=== PATIENT | female | born 1975 | race Caucasian/White ===

== ENCOUNTER 2022-01-18 08:41 | Inpatient (IN) | payer OTHER ==
[2022-01-18] MEDS ORDERED: Adenosine 6 MG/2 ML VIAL ONE (08:59)
[2022-01-18] MEDS ORDERED: Iopamidol 370 76% 100 ML VIAL ONE (09:06)
[2022-01-18 09:16] LABS: #Monocytes 0.8 10x3/uL (0.0-1.1); #Neutrophils 8.8 10x3/uL (1.5-8.4); %Basophils 0.1 % (0.0-2.0); %Eosinophils 0.4 % (0.0-6.0); %Lymphocytes 6.7 % (18.0-47.0); %Neutrophils 84.5 % (40.0-75.0); Hemoglobin 11.8 g/dL (12.0-15.5); Mean Corpuscular HGB CONC 32.1 g/dL (32.0-36.0); Mean Corpuscular Hemoglobin 25.4 pg (27.0-33.0); Mean Corpuscular Volume 79.3 fl (81.6-98.3); Platelet Count 257 10x3/uL (150-450); RBC Distribution Width 18.6 % (11.5-14.5); Red Blood Cell (RBC) Count 4.64 10x6/uL (3.90-5.03); White Blood Cell (WBC) Count 10.4 10x3/uL (3.5-10.5)
[2022-01-18] MEDS ORDERED: Acetaminophen 500 MG TAB ONE (09:18)
[2022-01-18 09:28] LABS: ALT (SGPT) 17 U/L (8-55); AST (SGOT) 21 U/L (5-34); Albumin 3.9 g/dL (3.5-5.0); Alkaline Phosphatase 78 U/L (40-110); Anion Gap 16 mmol/L (10-20); BUN (Urea Nitrogen) 6 mg/dL (7.0-18.7); Bilirubin, Total 0.3 mg/dL (0.2-1.2); CK (CPK) 108 U/L (29-168); Calc. Creatinine Clearance 0 mL/min (70-130); Calcium 9.3 mg/dL (7.8-10.44); Carbon Dioxide 20 mmol/L (22-29); Chloride 103 mmol/L (98-107); Estimated GFR 95; Globulin 3.1 g/dL (2.4-3.5); Glucose 129 mg/dL (70-105); Magnesium 1.4 mg/dL (1.6-2.6); Potassium 3.7 mmol/L (3.5-5.1); Sodium 135 mmol/L (136-145)
[2022-01-18] MEDS ORDERED: Magnesium 2 GM/50 ML BAG (IN WATER) ONE (09:40)
[2022-01-18 10:52] LABS: Bilirubin Neg (Negative); Blood, Urine Negative (Negative); Clarity Clear (Clear); Glucose, Urine (Dipstick) Normal (Negative); Ketone, Urine Negative (Negative); Leukocyte Negative (Negative); Nitrite Negative (Negative); Protein, Urine (Dipstick) Negative (Neg-Trace); Urobilinogen Normal mg/dL (Less than 2)
[2022-01-18] MEDS ORDERED: cefTRIAXone\\ROCEPHIN 2 GM VIAL ONE (12:13)
[2022-01-18] MEDS ORDERED: Azithromycin 500 MG VIAL ONE (12:15)
[2022-01-18 13:14] LABS: SARS-CoV-2 NAA Rapid Test Not Detected (NotDetected)
[2022-01-18 13:55] LABS: Troponin I Less than 0.010 ng/mL (< 0.028)
[2022-01-18] MEDS ORDERED: hydrALAZINE 20 MG/ML VIAL SLOW IVP PRN (14:09)
[2022-01-18] MEDS ORDERED: Benzonatate 100 MG CAP PO PRN (14:09)
[2022-01-18] MEDS ORDERED: Docusate 100 MG CAP PO PRN (14:09)
[2022-01-18] MEDS ORDERED: Sodium Chloride 0.9% 1,000 ML IV SCH (14:15)
[2022-01-18] MEDS ORDERED: Electrolyte Replacement Protocol 1 EACH FS PRN (14:15)
[2022-01-18] MEDS ORDERED: Dextrose 50% Abboject 50 ML SYRINGE SLOW IVP PRN (14:17)
[2022-01-18] MEDS ORDERED: Dextrose 5% in Water 1,000 ML IV PRN (14:17)
[2022-01-18] MEDS ORDERED: Ibuprofen 400 MG TAB PO PRN (14:29)
[2022-01-18] MEDS ORDERED: Gabapentin 300 MG CAP PO SCH (14:30)
[2022-01-18 14:34] LABS: Phosphorus 4.1 mg/dL (2.3-4.7)
[2022-01-18] MEDS ORDERED: Magnesium 2 GM/50 ML(in water) 2 GM in Premix Bag 1 BAG IVPB SCH (14:45)
[2022-01-18] MEDS ORDERED: Gabapentin 400 MG CAP PO SCH (14:45)
[2022-01-18 15:02] VITALS: BMI 58.3
[2022-01-18 15:51] LABS: Troponin I Less than 0.010 ng/mL (< 0.028)
[2022-01-18] MEDS: Gabapentin 400 MG CAP PO SCH (20:16)
[2022-01-18] MEDS ORDERED: traZODone HCl 50 MG TAB PO SCH (21:30)
[2022-01-19 04:54] LABS: #Eosinphils 0.4 10x3/uL (0.0-0.5); #Monocytes 0.7 10x3/uL (0.0-1.1); #Neutrophils 5.3 10x3/uL (1.5-8.4); %Basophils 0.2 % (0.0-2.0); %Eosinophils 4.5 % (0.0-6.0); %Lymphocytes 25.9 % (18.0-47.0); %Monocytes 8.3 % (0.0-10.0); %Neutrophils 60.9 % (40.0-75.0); Hemoglobin 9.3 g/dL (12.0-15.5); Mean Corpuscular HGB CONC 31.5 g/dL (32.0-36.0); Mean Corpuscular Hemoglobin 25.3 pg (27.0-33.0); Mean Corpuscular Volume 80.2 fl (81.6-98.3); Mean Platelet Volume 11.2 fl (7.4-10.4); Platelet Count 220 10x3/uL (150-450); RBC Distribution Width 18.5 % (11.5-14.5); Red Blood Cell (RBC) Count 3.68 10x6/uL (3.90-5.03); White Blood Cell (WBC) Count 8.6 10x3/uL (3.5-10.5)
[2022-01-19 05:14] LABS: Anion Gap 12 mmol/L (10-20); BUN (Urea Nitrogen) 7 mg/dL (7.0-18.7); Calc. Creatinine Clearance 244 mL/min (70-130); Calcium 8.4 mg/dL (7.8-10.44); Carbon Dioxide 23 mmol/L (22-29); Chloride 111 mmol/L (98-107); Estimated GFR 112; Glucose 88 mg/dL (70-105); Magnesium 1.9 mg/dL (1.6-2.6); Potassium 3.5 mmol/L (3.5-5.1); Sodium 142 mmol/L (136-145)
[2022-01-19] MEDS ORDERED: Potassium Chloride 20 MEQ TAB PO SCH ×2 (05:30→09:00)
[2022-01-19] MEDS ORDERED: Magnesium 2 GM/50 ML(in water) 2 GM in Premix Bag 1 BAG IVPB SCH (05:30)
[2022-01-19] MEDS: Gabapentin 400 MG CAP PO SCH ×2 (08:45→16:40)
[2022-01-19] MEDS ORDERED: Enoxaparin Sodium 40 MG/0.4 ML SYRINGE SC SCH (09:00)
[2022-01-19 11:44] LABS: Benzodiazepine Screen Detected (NotDetected); Cocaine Metabolite Screen Not Detected (NotDetected); Opiate Screen Detected (NotDetected); Phencyclidine (PCP) Not Detected (NotDetected); THC/Cannabinoid Screen Not Detected (NotDetected); Tricyclic Screen Detected (NotDetected)
[2022-01-19 11:45] LABS: Amphetamine Not Detected (NotDetected); Barbiturates Screen Not Detected (NotDetected); Methadone Not Detected (NotDetected); Methamphetamine Not Detected (NotDetected); Oxycodone Screen Not Detected (NotDetected)
[2022-01-19] MEDS ORDERED: Azithromycin 500 MG in Sodium Chloride 0.9% 250 ML 250 ML IVPB SCH (12:00)
[2022-01-19 12:44] LABS: Hemoglobin A1c 5.2 % (4.0-6.0)
[2022-01-19] MEDS ORDERED: cefTRIAXone\\ROCEPHIN 2 GM in Sodium Chloride 0.9% 100 ML IVPB SCH (13:00)
[2022-01-19 17:05] VITALS: BP 141/86; TEMP 98.7
[2022-01-19] MEDS ORDERED: traZODone HCl 50 MG TAB PO SCH (21:00)
== END 2022-01-19 17:42 | disposition home or self-care (01) | DRG 871 ==
LOC: CSHERS 08:41 → CSHTELE 14:22
PROVIDERS: ADMIT Internal Medicine; ATTEND Internal Medicine
DX: A41.9 Sepsis, unspecified organism (principal); J18.9 Pneumonia, unspecified organism; I47.1 Supraventricular tachycardia; Z68.43 Body mass index [BMI] 50.0-59.9, adult; E11.9 Type 2 diabetes mellitus without complications; E66.9 Obesity, unspecified; K21.9 Gastro-esophageal reflux disease without esophagitis; Z20.822 Contact with and (suspected) exposure to COVID-19; F41.9 Anxiety disorder, unspecified; G43.909 Migraine, unspecified, not intractable, without status migrainosus; E83.42 Hypomagnesemia; Z79.899 Other long term (current) drug therapy; Z79.84 Long term (current) use of oral hypoglycemic drugs
CPT/HCPCS: 36415; 36416; 71045; 71275; 80048; 80053; 80306; 81003; 82103; 82550; 83036; 83605; 83735; 84100; 84145; 84443; 84484; 85025; 85379; 87040; 93005; 93306; 94760; J0153; J0456; J0696; J1650; J3475; J3490; J7050; Q9967; U0002

== ENCOUNTER 2022-03-15 07:08 | Inpatient (IN) | payer OTHER ==
[2022-03-15] MEDS ORDERED: cefTRIAXone\\ROCEPHIN 2 GM VIAL ONE (07:32)
[2022-03-15] MEDS ORDERED: Acetaminophen 500 MG TAB ONE (07:32)
[2022-03-15 08:05] LABS: #Monocytes 0.5 10x3/uL (0.0-1.1); #Neutrophils 8.7 10x3/uL (1.5-8.4); %Basophils 0.2 % (0.0-2.0); %Lymphocytes 4.9 % (18.0-47.0); %Monocytes 5.5 % (0.0-10.0); %Neutrophils 89.2 % (40.0-75.0); Hemoglobin 11.3 g/dL (12.0-15.5); Mean Corpuscular HGB CONC 31.7 g/dL (32.0-36.0); Mean Corpuscular Hemoglobin 26.2 pg (27.0-33.0); Mean Corpuscular Volume 82.4 fl (81.6-98.3); Mean Platelet Volume 11.7 fl (7.4-10.4); Platelet Count 209 10x3/uL (150-450); RBC Distribution Width 17.2 % (11.5-14.5); Red Blood Cell (RBC) Count 4.32 10x6/uL (3.90-5.03); White Blood Cell (WBC) Count 9.8 10x3/uL (3.5-10.5)
[2022-03-15 08:14] LABS: INR-International Normal Ratio 1.1; PTT 26.2 sec (22.0-33.0); Prothrombin Time 11.9 sec (9.5-12.1)
[2022-03-15 08:28] LABS: ALT (SGPT) 9 U/L (8-55); AST (SGOT) 16 U/L (5-34); Albumin 3.7 g/dL (3.5-5.0); Alkaline Phosphatase 68 U/L (40-110); Anion Gap 13 mmol/L (10-20); BUN (Urea Nitrogen) 14 mg/dL (7.0-18.7); Bilirubin, Total 0.3 mg/dL (0.2-1.2); Calc. Creatinine Clearance 0 mL/min (70-130); Calcium 8.6 mg/dL (7.8-10.44); Carbon Dioxide 23 mmol/L (22-29); Chloride 101 mmol/L (98-107); Estimated GFR 85; Globulin 3.2 g/dL (2.4-3.5); Glucose 117 mg/dL (70-105); Potassium 3.2 mmol/L (3.5-5.1); Protein, Total 6.9 g/dL (6.0-8.3); Sodium 134 mmol/L (136-145)
[2022-03-15 09:39] LABS: SARS-CoV-2 NAA Rapid Test Not Detected (NotDetected)
[2022-03-15 11:03] LABS: Bilirubin Neg (Negative); Blood, Urine Negative (Negative); Clarity Sl. Cloudy (Clear); Glucose, Urine (Dipstick) Normal (Negative); Ketone, Urine Negative (Negative); Leukocyte Negative (Negative); Nitrite Negative (Negative); Protein, Urine (Dipstick) Negative (Neg-Trace); Specific Gravity, Urine 1.005 (1.005-1.030); Urobilinogen Normal mg/dL (Less than 2)
[2022-03-15 11:32] LABS: Troponin I 0.019 ng/mL (< 0.028)
[2022-03-15] MEDS ORDERED: HumaLOG 300 UNITS/3 ML VIAL SC PRN ×2 (11:47→21:00)
[2022-03-15] MEDS ORDERED: Dextrose 5% in Water 1,000 ML IV PRN (11:47)
[2022-03-15] MEDS ORDERED: Dextrose 50% Abboject 50 ML SYRINGE SLOW IVP PRN (11:47)
[2022-03-15] MEDS ORDERED: Potassium Chloride 20 MEQ TAB PO SCH (12:00)
[2022-03-15] MEDS ORDERED: Electrolyte Replacement Protocol 1 EACH FS SCH (12:00)
[2022-03-15 12:22] LABS: Magnesium 1.3 mg/dL (1.6-2.6)
[2022-03-15 12:26] LABS: Phosphorus 1.1 mg/dL (2.3-4.7)
[2022-03-15 13:12] VITALS: BMI 59.5
[2022-03-15] MEDS: PHOS-NAK 1 PKT PACK PO SCH ×3 (13:21→21:16)
[2022-03-15] MEDS: Magnesium 2 GM/50 ML(in water) 2 GM in Premix Bag 1 BAG IVPB SCH ×2 (13:21→13:40)
[2022-03-15] MEDS: Acetaminophen 325 MG TAB PO PRN ×2 (13:36→22:45)
[2022-03-15] MEDS ORDERED: Cyclobenzaprine 10 MG TAB PO PRN (15:00)
[2022-03-15 15:17] LABS: HIV (1/2) Antibody/Antigen Non-Reactive (NonReactive); HIV 1/2 INDEX 0.05 S/CO (<1.00)
[2022-03-15 16:20] LABS: Legionella Urinary Ag Negative (Negative); Strep pneumo Urine Ag NEGATIVE (NEGATIVE)
[2022-03-15] MEDS: Ampicillin/Sulbactam 3 GM in Sodium Chloride 0.9% 100 ML IVPB SCH (16:49)
[2022-03-15] MEDS: methylPREDNISolone Sod Succ 40 MG VIAL IVP SCH (17:20)
[2022-03-15] MEDS ORDERED: traZODone HCl 50 MG TAB PO PRN (21:00)
[2022-03-15] MEDS: DULoxetine 30 MG CAP PO SCH (21:12)
[2022-03-15] MEDS: Escitalopram Oxalate 20 mg Tablet PO SCH (21:13)
[2022-03-15] MEDS: Propranolol HCl LA 60 MG CAP PO SCH (21:15)
[2022-03-15] MEDS: Rosuvastatin 10 MG TAB PO SCH (21:15)
[2022-03-15] MEDS: Pantoprazole 40 MG VIAL IVP SCH (21:16)
[2022-03-15] MEDS ORDERED: Gabapentin 300 MG CAP PO SCH (21:30)
[2022-03-16] MEDS: methylPREDNISolone Sod Succ 40 MG VIAL IVP SCH ×3 (00:01→20:42)
[2022-03-16] MEDS: Ampicillin/Sulbactam 3 GM in Sodium Chloride 0.9% 100 ML IVPB SCH ×4 (00:07→17:12)
[2022-03-16] MEDS: PHOS-NAK 1 PKT PACK PO SCH (00:08)
[2022-03-16 05:11] LABS: Hemoglobin 10.4 g/dL (12.0-15.5); Mean Corpuscular HGB CONC 32.1 g/dL (32.0-36.0); Mean Corpuscular Hemoglobin 26.1 pg (27.0-33.0); Mean Corpuscular Volume 81.2 fl (81.6-98.3); Platelet Count 293 10x3/uL (150-450); RBC Distribution Width 17.2 % (11.5-14.5); Red Blood Cell (RBC) Count 3.99 10x6/uL (3.90-5.03); White Blood Cell (WBC) Count 21.4 10x3/uL (3.5-10.5)
[2022-03-16 05:19] LABS: ALT (SGPT) 12 U/L (8-55); AST (SGOT) 16 U/L (5-34); Albumin 3.6 g/dL (3.5-5.0); Alkaline Phosphatase 75 U/L (40-110); Anion Gap 13 mmol/L (10-20); BUN (Urea Nitrogen) 8 mg/dL (7.0-18.7); Bilirubin, Total 0.3 mg/dL (0.2-1.2); Calc. Creatinine Clearance 242 mL/min (70-130); Calcium 9.3 mg/dL (7.8-10.44); Carbon Dioxide 23 mmol/L (22-29); Chloride 106 mmol/L (98-107); Estimated GFR 111; Globulin 3.4 g/dL (2.4-3.5); Glucose 156 mg/dL (70-105); Magnesium 2.3 mg/dL (1.6-2.6); Potassium 4.6 mmol/L (3.5-5.1); Sodium 137 mmol/L (136-145)
[2022-03-16 05:24] LABS: Phosphorus 3.2 mg/dL (2.3-4.7)
[2022-03-16 06:05] LABS: MDiff Complete? YES; Platelet Morphology Comment Appears Adequate
[2022-03-16 06:07] LABS: Band 3 % (5-11); Lymphocytes 3 % (21-51); Monocytes 1 % (0-10); Neutrophil 93 % (42-75)
[2022-03-16] MEDS ORDERED: DULoxetine 60 MG CAP PO SCH (09:00)
[2022-03-16] MEDS: Pantoprazole 40 MG VIAL IVP SCH ×2 (09:21→20:43)
[2022-03-16] MEDS ORDERED: Ketamine 50 MG/ML (10ML VIAL) ONE (14:10)
[2022-03-16] MEDS ORDERED: Midazolam HCl 2 mg/2 ml Vial ONE (14:13)
[2022-03-16] MEDS ORDERED: ePHEDrine Sulfate 50 MG/10 ML VIAL ONE (14:13)
[2022-03-16] MEDS ORDERED: PROPOFOL 40 ML ONE (14:13)
[2022-03-16] MEDS ORDERED: Lidocaine 2% PF 5 ML VIAL ONE (14:14)
[2022-03-16] MEDS ORDERED: Succinylcholine 200 MG/10 ml SYRINGE FS ONE (14:14)
[2022-03-16] MEDS ORDERED: Rocuronium Bromide 10 MG/ML (10ML VIAL) ONE (14:14)
[2022-03-16] MEDS ORDERED: Glycopyrrolate 0.2 MG/ML 5 ML SYRINGE ONE (14:14)
[2022-03-16] MEDS ORDERED: PHENYLEPHRINE-NS 100 MCG/ML 10 ML SYRINGE ONE (14:14)
[2022-03-16] MEDS ORDERED: ALPRAZolam 0.5 MG TAB PO PRN (16:22)
[2022-03-16] MEDS: Rosuvastatin 10 MG TAB PO SCH (20:44)
[2022-03-16] MEDS: DULoxetine 30 MG CAP PO SCH (20:44)
[2022-03-16] MEDS: Escitalopram Oxalate 20 mg Tablet PO SCH (20:44)
[2022-03-16] MEDS: Propranolol HCl LA 60 MG CAP PO SCH (20:44)
[2022-03-17] MEDS: Ampicillin/Sulbactam 3 GM in Sodium Chloride 0.9% 100 ML IVPB SCH ×2 (00:03→05:28)
[2022-03-17] MEDS: Acetaminophen 325 MG TAB PO PRN (01:00)
[2022-03-17 04:18] LABS: Hemoglobin 9.8 g/dL (12.0-15.5); Mean Corpuscular HGB CONC 31.4 g/dL (32.0-36.0); Mean Corpuscular Hemoglobin 25.4 pg (27.0-33.0); Mean Corpuscular Volume 80.8 fl (81.6-98.3); Mean Platelet Volume 11.2 fl (7.4-10.4); Platelet Count 313 10x3/uL (150-450); RBC Distribution Width 17.5 % (11.5-14.5); Red Blood Cell (RBC) Count 3.86 10x6/uL (3.90-5.03)
[2022-03-17 04:29] LABS: ALT (SGPT) 12 U/L (8-55); AST (SGOT) 20 U/L (5-34); Albumin 3.5 g/dL (3.5-5.0); Alkaline Phosphatase 65 U/L (40-110); Anion Gap 15 mmol/L (10-20); BUN (Urea Nitrogen) 14 mg/dL (7.0-18.7); Bilirubin, Total 0.2 mg/dL (0.2-1.2); Calc. Creatinine Clearance 216 mL/min (70-130); Calcium 9.3 mg/dL (7.8-10.44); Carbon Dioxide 20 mmol/L (22-29); Chloride 107 mmol/L (98-107); Estimated GFR 109; Globulin 3.3 g/dL (2.4-3.5); Glucose 139 mg/dL (70-105); Potassium 4.3 mmol/L (3.5-5.1); Protein, Total 6.8 g/dL (6.0-8.3); Sodium 138 mmol/L (136-145)
[2022-03-17 05:01] LABS: MDiff Complete? YES; Platelet Morphology Comment Appears Adequate
[2022-03-17 05:03] LABS: Band 1 % (5-11); Lymphocytes 8 % (21-51); Monocytes 2 % (0-10); Neutrophil 89 % (42-75)
[2022-03-17] MEDS: methylPREDNISolone Sod Succ 40 MG VIAL IVP SCH (05:27)
[2022-03-17] MEDS: Pantoprazole 40 MG VIAL IVP SCH (08:07)
[2022-03-17 08:34] VITALS: BP 150/88; TEMP 98.5
[2022-03-20 17:37] LABS: Mycoplasma pneumoniae IgG AB 2847 U/mL (0-99); Mycoplasma pneumoniae IgM AB Less than 770 U/mL (0-769)
== END 2022-03-17 10:05 | disposition home or self-care (01) | DRG 871 ==
LOC: CSHERS 07:08 → CSHIMCU 11:20
PROVIDERS: ADMIT Family Medicine; ATTEND Internal Medicine
PROC: 3E03329 Introduction of Other Anti-infective into Peripheral Vein, Percutaneous Approach (ICD-10-PCS; 2022-03-15)
PROC: 0DB58ZX Excision of Esophagus, Via Natural or Artificial Opening Endoscopic, Diagnostic (ICD-10-PCS; principal; 2022-03-16)
DX: A41.9 Sepsis, unspecified organism (principal); J69.0 Pneumonitis due to inhalation of food and vomit; J96.01 Acute respiratory failure with hypoxia; I47.1 Supraventricular tachycardia; Z68.43 Body mass index [BMI] 50.0-59.9, adult; E11.9 Type 2 diabetes mellitus without complications; K21.9 Gastro-esophageal reflux disease without esophagitis; F41.9 Anxiety disorder, unspecified; G43.909 Migraine, unspecified, not intractable, without status migrainosus; E87.6 Hypokalemia; E66.9 Obesity, unspecified; E61.2 Magnesium deficiency; Z20.822 Contact with and (suspected) exposure to COVID-19; Z79.899 Other long term (current) drug therapy; Z98.890 Other specified postprocedural states
CPT/HCPCS: 36415; 36416; 71045; 71275; 74220; 80053; 81003; 83605; 83735; 83880; 84100; 84145; 84484; 85025; 85610; 85652; 85730; 87040; 87081; 87086; 87389; 87449; 87633; 87899; 88305; 93005; 94640; 94760; 96361; 96365; 96375; C9113; J0295; J0696; J1956; J2001; J2250; J2704; J2920; J3370; J3475; J3490; J7030; J7620